=== PATIENT | female | born 1950 | race Caucasian/White ===

== ENCOUNTER → 2016-11-14 | Outpatient (CLI) | payer BC ==
[~2016-11-14] MED LIST: BENADRYL25 M2 PO; CALCIUM1 CAP PO; CARDI-OMEGA1000 MG PO; ELITE MAGNESIUM1 TAB PO; FEMRING0.1 MG/24 VG; LORATADINE10 MG PO; MULTIVITAMIN FO1 CAP PO; NEXIUM40 MG PO; SINGULAIR10 MG PO; SYNTHROID0.088 MG PO; VITAMIN B COMPL1 TA1 PO; VITAMIN D1000 IU PO; VITAMIN D3400 IU PO; ZANTAC 150150 MG PO; ZYRTEC10 MG PO; [UNRECOGNIZED DRUG - OTHER] TP
== END ==
LOC: MC.RAD 13:20
DX: Z12.31 Encounter for screening mammogram for malignant neoplasm of breast (principal)

== ENCOUNTER → 2018-06-11 | Outpatient (CLI) | payer MEDICARE, BC | LOC: COL.PUL 11:18 | DX: R06.02 Shortness of breath (principal) ==

== ENCOUNTER → 2018-08-12 | Outpatient (CLI) | payer MEDICARE, BC | LOC: COL.RAD 12:45 | DX: K11.20 Sialoadenitis, unspecified (principal) ==

== ENCOUNTER 2018-09-01 09:59 | Outpatient (CLI) | payer MEDICARE, BC ==
[~2018-09-01] VITALS: Ht 160 cm; Wt 68.7 kg
[~2018-09-01 09:59] MED LIST changes: -SYNTHROID0.088 MG PO; +SYNTHROID0.1 MG/TAB PO; -VITAMIN D1000 IU PO; +VITAMIN D31000 I1 PO
[2018-09-01 10:18] VITALS: BP 110/77; PULSE 72; TEMP 98.3
[2018-09-01] MEDS ORDERED: BREO IH (10:34)
== END 2018-09-01 10:37 | disposition home or self-care (01) ==
LOC: EUO 09:59
DX: M81.0 Age-related osteoporosis without current pathological fracture (principal)
CPT/HCPCS: J0897

== ENCOUNTER → 2018-09-14 | Outpatient (CLI) | payer MEDICARE, BC ==
[~2018-09-14] MED LIST changes: +BREO IH
== END ==
LOC: MC.RAD 10:12
DX: Z12.31 Encounter for screening mammogram for malignant neoplasm of breast (principal)

== ENCOUNTER 2019-03-17 10:11 | Outpatient (CLI) | payer MEDICARE, BC ==
[~2019-03-17] VITALS: Ht 160 cm; Wt 69.0 kg
[~2019-03-17 10:11] MED LIST changes: +SINGULAIR 110 MG/TAB PO; -SINGULAIR10 MG PO; +ZYRTEC 10MG10 MG PO; -ZYRTEC10 MG PO
[2019-03-17 10:41] VITALS: BP 105/79; PULSE 59; TEMP 98
[2019-03-17] MEDS ORDERED: NEXIUM 40MG40 MG PO (10:50)
--- NOTE | 2019-03-17 10:53 | NUR ---
Pt sabina Prolia well. Pt discharged per ambulation.
== END 2019-03-17 11:00 | disposition home or self-care (01) ==
LOC: EUO 10:11
DX: M81.0 Age-related osteoporosis without current pathological fracture (principal); Z79.899 Other long term (current) drug therapy
CPT/HCPCS: J0897

== ENCOUNTER 2019-09-16 14:04 | Outpatient (CLI) | payer MEDICARE, BC ==
[~2019-09-16] VITALS: Ht 160 cm; Wt 69.3 kg
[~2019-09-16 14:04] MED LIST changes: +BREO ELLIPTA 21 EACH IH; -BREO IH; +NEXIUM 40MG40 MG PO
[2019-09-16 14:34] VITALS: BP 122/67; PULSE 77; TEMP 97.6
== END 2019-09-16 16:15 | disposition home or self-care (01) ==
LOC: EUO 14:04
DX: M81.0 Age-related osteoporosis without current pathological fracture (principal)
CPT/HCPCS: J0897

== ENCOUNTER → 2019-11-22 | Outpatient (CLI) | payer MEDICARE, BC | LOC: MC.RAD 10-13 11:30 | DX: Z12.31 Encounter for screening mammogram for malignant neoplasm of breast (principal) ==

== ENCOUNTER → 2020-07-11 | Outpatient (CLI) | payer MEDICARE, BC ==
[~2020-07-11] MED LIST changes: +AMBIEN 10MG10 MG PO; +FEMRING VG; +PROLIA60 MG/ML SQ; +VOLTAREN GEL 1%1 TU TP; +ZOFRAN ODT8 MG PO
== END ==
LOC: COL.RAD
DX: M47.812 Spondylosis without myelopathy or radiculopathy, cervical region (principal); M48.02 Spinal stenosis, cervical region; M47.816 Spondylosis without myelopathy or radiculopathy, lumbar region; G62.89 Other specified polyneuropathies

== ENCOUNTER 2021-03-12 16:08 | Outpatient (CLI) | payer MEDICARE, BC ==
[~2021-03-12] VITALS: Ht 160 cm; Wt 69.0 kg
[2021-03-12 16:27] VITALS: BP 118/79; PULSE 82; TEMP 98.2
== END 2021-03-12 16:43 | disposition home or self-care (01) ==
LOC: EUO 16:08
DX: M81.0 Age-related osteoporosis without current pathological fracture (principal)
CPT/HCPCS: J0897

== ENCOUNTER 2021-09-17 14:54 | Outpatient (CLI) | payer MEDICARE, BC ==
[~2021-09-17] VITALS: Ht 160 cm; Wt 68.2 kg
[2021-09-17 15:27] VITALS: BP 122/80; PULSE 72; TEMP 98.2
[2021-09-17] MEDS ORDERED: CITRACAL + D CA1 TAB PO (15:33)
[2021-09-17] MEDS ORDERED: NATURAL MAGNES200 MG PO (15:33)
[2021-09-17] MEDS ORDERED: OMEGA-31 SGL PO (15:34)
[2021-09-17] MEDS ORDERED: B-121000 MCG PO (15:34)
== END 2021-09-17 15:51 | disposition home or self-care (01) ==
LOC: EUO 14:54
DX: M81.0 Age-related osteoporosis without current pathological fracture (principal)
CPT/HCPCS: J0897

== ENCOUNTER 2022-09-26 16:28 | Outpatient (CLI) | payer MEDICARE, BC ==
[~2022-09-26] VITALS: Ht 160 cm; Wt 70.1 kg
[~2022-09-26 16:28] MED LIST changes: +ATARAX50 MG PO; +B-121000 MCG PO; +CITRACAL + D CA1 TAB PO; +FLEXERIL 1010 MG/TAB PO; +NATURAL MAGNES200 MG PO; +OMEGA-31 SGL PO
[2022-09-26] MEDS ORDERED: ZYRTEC 10MG10 MG PO (16:49)
[2022-09-26 16:50] VITALS: BP 119/79; PULSE 80; TEMP 98.4
== END 2022-09-26 17:08 | disposition home or self-care (01) ==
LOC: EUO 16:28
DX: M81.0 Age-related osteoporosis without current pathological fracture (principal)
CPT/HCPCS: J0897

== ENCOUNTER → 2023-03-31 | Outpatient (CLI) | payer MEDICARE, BC ==
[~2023-03-31] VITALS: Ht 160 cm; Wt 68.0 kg
[2023-03-31 09:56] VITALS: BP 134/77; PULSE 62; TEMP 97.7
== END ==
LOC: EUO 09:16
DX: M81.0 Age-related osteoporosis without current pathological fracture (principal)
CPT/HCPCS: J0897

== ENCOUNTER 2023-10-21 13:57 | Outpatient (CLI) | payer MEDICARE, BC ==
[~2023-10-21] VITALS: Ht 160 cm; Wt 64.0 kg
[2023-10-21] MEDS ORDERED: Denosumab 60 MG/ML SYRINGE SQ ONE (14:15)
[2023-10-21 14:35] VITALS: BP 96/68; PULSE 68; TEMP 98.3
== END 2023-10-21 14:37 ==
LOC: EUO 13:57
DX: M81.0 Age-related osteoporosis without current pathological fracture (principal)
CPT/HCPCS: J0897

== ENCOUNTER → 2023-11-17 | Outpatient (CLI) | payer MEDICARE, BC | LOC: MC.RAD 10:18 | DX: Z12.31 Encounter for screening mammogram for malignant neoplasm of breast (principal); N64.89 Other specified disorders of breast ==